=== PATIENT | male | born 1955 | race African-American/Black ===

== ENCOUNTER 2017-03-18 06:29 | Emergency (ER) | payer OTHER ==
[~2017-03-18] VITALS: Ht 177.8 cm; Wt 61.0 kg
[2017-03-18] MEDS ORDERED: SODIUM CHLORIDE 0.9% 1,000 ML IV ONE (07:29)
[2017-03-18] MEDS ORDERED: ONDANSETRON HCL 4MG/2ML VIAL IV STA (07:29)
[2017-03-18] MEDS ORDERED: MORPHINE SULFATE 4 MG/ML CPJ (NOT FOR IM USE) IV STA (07:29)
[2017-03-18 07:49] LABS: BASOPHILS % 0.8 % (0.0-2.0); EOSINOPHILS % 0.4 % (0.0-5.0); HEMATOCRIT. 40.3 % (42.0-52.0); HEMOGLOBIN. 13.7 g/dL (14.0-18.0); LYMPHOCYTES % 24.6 % (20.0-50.0); MEAN CORPUSCULAR HEMOGLOBIN 28.9 pg (28.0-32.0); MEAN PLATELET VOLUME 7.5 fl (7.4-10.4); MONOCYTES % 12.2 % (2.0-8.0); PLATELET 242 x1000/uL (130-400); RED BLOOD CELL COUNT 4.74 mill/uL (4.7-6.1); RED CELL DISTRIBUTION WIDTH 13.3 % (11.6-14.6)
[2017-03-18 08:06] LABS: CARBON DIOXIDE 26 mEq/L (21-32); CHLORIDE 108 mEq/L (98-107)
[2017-03-18] MEDS ORDERED: CEFTRIAXONE SODIUM 250 MG/VIAL IM ONE (09:00)
[2017-03-18] MEDS ORDERED: AZITHROMYCIN 500 MG TABLET PO ONE (09:00)
[2017-03-18 09:01] LABS: CLARITY URINE CLEAR (CLEAR); COLOR URINE YELLOW (YELLOW); GLUCOSE URINE NEGATIVE (NEGATIVE); KETONES URINE NEGATIVE (NEGATIVE); LEUKOCYTE ESTERASE URINE 2+ (NEGATIVE); NITRITE URINE POSITIVE (NEGATIVE); OCCULT BLOOD URINE TRACE (NEGATIVE); PROTEIN URINE NEGATIVE (NEGATIVE); SPECIFIC GRAVITY URINE 1.017 (1.005-1.030); UROBILINOGEN URINE 0.2 E.U./dL (0.2-1.0)
[2017-03-18] MEDS ORDERED: METRONIDAZOLE 500MG TABLET PO ONE (10:30)
[2017-03-18] MEDS ORDERED: DOXYCYCLINE HYCLATE 100 MG/VIAL IV ONE (10:30)
[2017-03-18] MEDS ORDERED: DOXYCYCLINE 100MG in DEXTROSE 5% WATER 100ML IV SCH (10:45)
[2017-03-18 10:58] VITALS: BP 143/86
[2017-03-20 08:18] LABS: CHLAMYDIA TRACHOMATIS NAA Negative (Negative); NEISSERIA GONORRHOEAE NAA Negative (Negative)
== END 2017-03-18 11:53 | disposition home or self-care (01) ==
LOC: ER 06:29
DX: N45.1 Epididymitis (principal); N43.3 Hydrocele, unspecified; N39.0 Urinary tract infection, site not specified; A59.9 Trichomoniasis, unspecified; I86.1 Scrotal varices; I10 Essential (primary) hypertension; M54.30 Sciatica, unspecified side; F12.10 Cannabis abuse, uncomplicated
CPT/HCPCS: 36415; 76870; 80053; 81001; 85025; 87491; 87591; 93976; 96361; 96365; 96372; 96375; 99285; J0696; J2270; J2405; J3490; J7030; Z7610; J7060

== ENCOUNTER 2019-01-31 07:05 | Emergency (ER) | payer OTHER ==
[~2019-01-31] VITALS: Ht 177.8 cm; Wt 105.1 kg
[~2019-01-31 07:05] MED LIST: DOXA4TAB3 PO
[2019-01-31 10:00] VITALS: BP 123/76
== END 2019-01-31 10:30 | disposition home or self-care (01) ==
LOC: ER 07:05
DX: M79.601 Pain in right arm (principal); F12.10 Cannabis abuse, uncomplicated; I10 Essential (primary) hypertension; H40.9 Unspecified glaucoma
CPT/HCPCS: 93971; 99284; Z7610

== ENCOUNTER 2019-08-02 08:05 | Emergency (ER) | payer OTHER ==
[~2019-08-02] VITALS: Ht 177.8 cm; Wt 99.0 kg
[2019-08-02] MEDS ORDERED: DEXAMETHASONE 10 MG/ML VIAL IM ONE (09:15)
[2019-08-02] MEDS ORDERED: KETOROLAC 60MG/2ML VIAL IM ONE (09:15)
[2019-08-02] MEDS ORDERED: BACITRACIN ZINC OINT UDPKT TOP ONE (09:30)
[2019-08-02 10:52] VITALS: BP 138/70
== END 2019-08-02 10:40 | disposition home or self-care (01) ==
LOC: ER 08:05
DX: M54.41 Lumbago with sciatica, right side (principal); S81.851A Open bite, right lower leg, initial encounter; W54.0XXA Bitten by dog, initial encounter; Y93.89 Activity, other specified; Y92.89 Other specified places as the place of occurrence of the external cause; Z86.718 Personal history of other venous thrombosis and embolism
CPT/HCPCS: 96372; 99283; J1100; J1885

== ENCOUNTER 2020-11-29 09:02 | Emergency (ER) | payer MEDICAID, OTHER ==
[~2020-11-29] VITALS: Ht 177.8 cm; Wt 105.0 kg
[2020-11-29] MEDS ORDERED: ACETAMINOPHEN 325MG TABLET PO ONE (09:45)
[2020-11-29] MEDS ORDERED: ACET-2708 MT (10:21)
[2020-11-29 10:33] VITALS: BP 148/71
== END 2020-11-29 10:34 | disposition home or self-care (01) ==
LOC: ER 09:02
DX: S90.01XA Contusion of right ankle, initial encounter (principal); W22.8XXA Striking against or struck by other objects, initial encounter; Y93.89 Activity, other specified; Y92.89 Other specified places as the place of occurrence of the external cause; G89.29 Other chronic pain; M54.5 Low back pain; M79.605 Pain in left leg; R03.0 Elevated blood-pressure reading, without diagnosis of hypertension; F12.90 Cannabis use, unspecified, uncomplicated; Z86.718 Personal history of other venous thrombosis and embolism
CPT/HCPCS: 73610; 99283

== ENCOUNTER 2021-10-03 08:08 | Emergency (ER) | payer MEDICAID, OTHER ==
[~2021-10-03] VITALS: Ht 175.3 cm; Wt 104.0 kg
[~2021-10-03 08:08] MED LIST changes: +ACET-2708 MT
[2021-10-03] MEDS ORDERED: IBUPROFEN 400MG TABLET PO ONE (09:00)
[2021-10-03 09:06] VITALS: BP 139/91
== END 2021-10-03 12:39 | disposition home or self-care (01) ==
LOC: ER 08:08
DX: M79.672 Pain in left foot (principal); M25.562 Pain in left knee; M25.561 Pain in right knee; I10 Essential (primary) hypertension; G89.29 Other chronic pain; M54.59 Other low back pain; Z86.718 Personal history of other venous thrombosis and embolism
CPT/HCPCS: 73564; 73630; 99284

== ENCOUNTER 2022-05-06 09:31 | Inpatient (IN) | payer OTHER ==
[~2022-05-06] VITALS: Ht 177.8 cm; Wt 109.8 kg
[2022-05-06] MEDS ORDERED: MAGNESIUM/ALUMINUM HYDROXIDE/SIMETHICONE 30ML UDC PO STA (10:41)
[2022-05-06] MEDS ORDERED: FAMOTIDINE 20MG TABLET PO ONE (10:45)
[2022-05-06 11:24] LABS: BASOPHILS % 0.5 % (0.0-2.0); EOSINOPHILS % 2.1 % (0.0-5.0); HEMATOCRIT. 40.1 % (42.0-52.0); HEMOGLOBIN. 13.4 g/dL (14.0-18.0); MEAN CORPUSCULAR HEMOGLOBIN 29.9 pg (28.0-32.0); MEAN CORPUSCULAR VOLUME 89.2 fL (80.0-94.0); MEAN PLATELET VOLUME 7.9 fl (7.4-10.4); MONOCYTES % 9.7 % (2.0-8.0); NEUTROPHILS % 60.7 % (40.0-76.0); PLATELET 237 x1000/uL (130-400); RED BLOOD CELL COUNT 4.49 mill/uL (4.7-6.1)
[2022-05-06 11:34] LABS: PARTIAL THROMBOPLASTIN TIME 28.1 sec (23.4-31.0); PROTHROMBIN TIME 10.7 sec (9.6-11.0)
[2022-05-06 11:42] LABS: CHLORIDE 107 mEq/L (98-107)
[2022-05-06] MEDS ORDERED: ACETAMINOPHEN 325MG TABLET PO ONE (12:00)
[2022-05-06] MEDS ORDERED: SODIUM CHLORIDE 0.9% 1,000 ML IV ONE (13:45)
[2022-05-06] MEDS ORDERED: IOHEXOL-350 100 ML BOTTLE ONE (18:09)
[2022-05-06] MEDS ORDERED: HEPARIN 25,000 UNITS PREMIX 250 ML IV ONE (18:15)
[2022-05-06] MEDS ORDERED: HEPARIN 5000 UNITS/ML VIAL IV ONE (18:15)
[2022-05-06] MEDS ORDERED: ENOXAPARIN 100MG/ML SYR SUBCUT ONE (18:30)
[2022-05-06] MEDS ORDERED: ACETAMINOPHEN 325MG TABLET PO NR (18:30)
[2022-05-06] MEDS: ENOXAPARIN 100MG/ML SYR SUBCUT SCH (18:56)
[2022-05-07] VITALS (7 sets, daily range): BP systolic 106–138; BP diastolic 60–85
[2022-05-07] MEDS: ENOXAPARIN 100MG/ML SYR SUBCUT SCH ×2 (06:22→19:38)
[2022-05-07] MEDS ORDERED: IPRATROPIUM/ALBUTEROL 0.5-3(2.5)MG/3ML NEB HHN PRN (10:45)
[2022-05-07] MEDS ORDERED: ACETAMINOPHEN 325MG TABLET PO PRN (10:45)
[2022-05-07] MEDS ORDERED: CLONIDINE 0.1MG TABLET PO PRN (10:45)
[2022-05-07] MEDS ORDERED: IOHEXOL-350 100 ML BOTTLE ONE (12:06)
[2022-05-07 18:41] LABS: CREATINE KINASE MB FRACTION 2.8 ng/mL (0.5-3.6); HDL CHOLESTEROL 40 mg/dL (40-59); LDL CHOLESTEROL 78 mg/dL (5-100)
[2022-05-07] MEDS ORDERED: NALOXONE HCL 0.4MG/ML VIAL IV PRN (19:00)
[2022-05-08 00:50] LABS: CREATINE KINASE MB FRACTION 2.3 ng/mL (0.5-3.6)
[2022-05-08 06:00] VITALS: BP 106/73
[2022-05-08] MEDS ORDERED: ENOXAPARIN 100MG/ML SYR SUBCUT SCH (06:00)
[2022-05-08 08:00] VITALS: BP 109/80
[2022-05-08] MEDS ORDERED: HEPARIN 1000 UNITS/ML 10ML ONE (09:06)
[2022-05-08] MEDS ORDERED: LIDOCAINE HCL/PF 1% 10 MG/ML 5ML VIAL ONE (09:06)
[2022-05-08] MEDS ORDERED: IODIXANOL 320MG/ML 100 ML BOTTLE IV ONE (09:06)
[2022-05-08] MEDS ORDERED: PROPOFOL 200MG/20ML VIAL IV ONE (10:24)
[2022-05-08] MEDS ORDERED: MIDAZOLAM HCL 2 MG/2 ML VIAL ONE (10:25)
[2022-05-08] MEDS ORDERED: FENTANYL CITRATE/PF 50MCG/ML 2ML VIAL ONE ×2 (10:58→12:11)
[2022-05-08] MEDS ORDERED: PHENYLEPHRINE HCL 10 MG/ML 1ML (IV VIAL) IV ONE (11:16)
[2022-05-08] MEDS ORDERED: SUCCINYLCHOLINE CHLORIDE 200MG/10ML IV ONE (12:06)
[2022-05-08] MEDS ORDERED: ONDANSETRON HCL 4MG/2ML INJ ONE (12:06)
[2022-05-08] MEDS ORDERED: CEFAZOLIN SODIUM 1000MG/VIAL ONE (12:06)
[2022-05-08] MEDS ORDERED: LIDOCAINE HCL 1% 10 MG/ML 10ML VIAL ONE (12:06)
[2022-05-08] MEDS ORDERED: DEXAMETHASONE 4MG/ML 1ML VIAL ONE (12:06)
[2022-05-08] MEDS ORDERED: ACETAMINOPHEN 325MG TABLET PO PRN (13:30)
[2022-05-08] MEDS: SODIUM CHLORIDE 0.45% 500 ML IV SCH ×3 (13:30→22:52)
[2022-05-08] MEDS ORDERED: ATROPINE SULFATE 1MG/10ML SYR IV PRN (13:50)
[2022-05-08] MEDS ORDERED: APIXABAN 5 MG TABLET PO SCH (17:00)
[2022-05-08 20:00] VITALS: BP 126/84
[2022-05-08 21:00] VITALS: BP 131/68
[2022-05-08 22:00] VITALS: BP 148/69
[2022-05-08] MEDS: HYDROCODONE/ACETAMINOPHEN 5/325MG TABLET PO PRN (22:49)
[2022-05-09] VITALS (14 sets, daily range): BP systolic 97–146; BP diastolic 36–85
[2022-05-09] MEDS: HYDROCODONE/ACETAMINOPHEN 5/325MG TABLET PO PRN ×2 (04:44→21:02)
[2022-05-09] MEDS: ENOXAPARIN 100MG/ML SYR SUBCUT SCH ×3 (04:47→18:50)
[2022-05-09] MEDS: SODIUM CHLORIDE 0.45% 500 ML IV SCH ×2 (04:47→08:47)
[2022-05-09 06:18] LABS: BASOPHILS % 0.1 % (0.0-2.0); EOSINOPHILS % 0.1 % (0.0-5.0); HEMATOCRIT. 33.4 % (42.0-52.0); HEMOGLOBIN. 11.3 g/dL (14.0-18.0); LYMPHOCYTES % 11.1 % (20.0-50.0); MEAN CORPUSCULAR VOLUME 88.5 fL (80.0-94.0); MEAN PLATELET VOLUME 8.5 fl (7.4-10.4); MONOCYTES % 9.8 % (2.0-8.0); NEUTROPHILS % 78.9 % (40.0-76.0); PLATELET 242 x1000/uL (130-400); RED BLOOD CELL COUNT 3.77 mill/uL (4.7-6.1); RED CELL DISTRIBUTION WIDTH 12.9 % (11.6-14.6)
[2022-05-09 06:33] LABS: CHLORIDE 110 mEq/L (98-107)
[2022-05-10] VITALS (8 sets, daily range): BP systolic 113–131; BP diastolic 61–85
[2022-05-10] MEDS: ENOXAPARIN 100MG/ML SYR SUBCUT SCH (07:07)
== END 2022-05-10 13:45 | disposition home health service (06) | DRG 169 ==
LOC: ER 11:57 → MICUSO 05-07 06:50 → EDBEDREQ 05-07 06:57 → EDBEDREQDT 05-07 06:57 → EDBEDREQTM 05-07 06:57 → 8WST 05-07 08:50 → 5EST 05-08 18:08
PROVIDERS: ADMIT Internal Medicine; ATTEND Internal Medicine
PROC: 06HD3DZ Insertion of Intraluminal Device into Left Common Iliac Vein, Percutaneous Approach (ICD-10-PCS; principal; 2022-05-08)
PROC: 04CD3ZZ Extirpation of Matter from Left Common Iliac Artery, Percutaneous Approach (ICD-10-PCS; 2022-05-08)
PROC: B54CZZ3 Ultrasonography of Left Lower Extremity Veins, Intravascular (ICD-10-PCS; 2022-05-08)
PROC: B51CYZZ Fluoroscopy of Left Lower Extremity Veins using Other Contrast (ICD-10-PCS; 2022-05-08)
DX: I82.422 Acute embolism and thrombosis of left iliac vein (principal); I87.1 Compression of vein; F17.210 Nicotine dependence, cigarettes, uncomplicated; I10 Essential (primary) hypertension; Z71.6 Tobacco abuse counseling; Z86.718 Personal history of other venous thrombosis and embolism; Z79.01 Long term (current) use of anticoagulants; Z86.711 Personal history of pulmonary embolism; Z20.822 Contact with and (suspected) exposure to COVID-19
CPT/HCPCS: 36415; 36569; 36904; 36907; 37187; 37238; 37246; 37248; 74177; 75635; 75736; 75820; 75825; 76937; 80048; 80053; 80061; 82553; 83036; 84153; 84484; 85025; 85347; 87426; 93306; 93971; 99285; C1725; C1753; C1769; C1887; C1893; C9803; J0330; J0690; J1100; J1644; J1650; J2250; J2370; J2405; J2704; J3010; J3490; J7030; L1830; Q9967; C1876; G0103

== ENCOUNTER 2022-05-25 18:24 | Emergency (ER) | payer OTHER ==
[~2022-05-25] VITALS: Ht 177.8 cm; Wt 109.0 kg
[2022-05-25 18:30] VITALS: BP 120/68
[2022-05-25 19:47] LABS: CHLORIDE 104 mEq/L (98-107)
== END 2022-05-25 23:01 | disposition left against medical advice (07) ==
LOC: ER 18:41
DX: M79.605 Pain in left leg (principal); R06.02 Shortness of breath; Z86.718 Personal history of other venous thrombosis and embolism; Z98.890 Other specified postprocedural states; Z79.01 Long term (current) use of anticoagulants
CPT/HCPCS: 36415; 80048; 99283

== ENCOUNTER 2024-03-06 08:44 | Emergency (ER) | payer OTHER ==
[~2024-03-06] VITALS: Ht 182.9 cm; Wt 97.0 kg
[2024-03-06 08:45] VITALS: TEMP 98.2; O2SAT 98
[2024-03-06 10:12] LABS: BASOPHILS % 0.6 % (0.0-2.0); EOSINOPHILS % 1.1 % (0.0-5.0); HEMATOCRIT. 44.6 % (42.0-52.0); HEMOGLOBIN. 14.6 g/dL (14.0-18.0); LYMPHOCYTES % 24.3 % (20.0-50.0); MEAN CORPUSCULAR HGB CONC 32.7 g/dL (31.0-37.0); MEAN CORPUSCULAR VOLUME 91.6 fL (80.0-94.0); MEAN PLATELET VOLUME 8.6 fl (7.4-10.4); MONOCYTES % 11.7 % (2.0-8.0); NEUTROPHILS % 62.3 % (40.0-76.0); PLATELET 235 x1000/uL (130-400); RED BLOOD CELL COUNT 4.87 mill/uL (4.7-6.1); RED CELL DISTRIBUTION WIDTH 14.1 % (11.6-14.6); WHITE BLOOD COUNT 6.6 x1000/uL (4.5-11.0)
[2024-03-06 10:28] LABS: CHLORIDE 109 mEq/L (98-107); POTASSIUM 3.9 mEq/L (3.5-5.1); SODIUM 142 mEq/L (136-145)
[2024-03-06 10:29] LABS: CARBON DIOXIDE 27 mEq/L (21-32)
[2024-03-06 10:30] LABS: CALCIUM 9.3 mg/dL (8.7-10.4)
[2024-03-06 10:34] LABS: CREATININE 1.1 mg/dL (0.6-1.3); GLUCOSE 123 mg/dL (70-105); UREA NITROGEN BLOOD 13 mg/dL (9-23)
[2024-03-06] MEDS ORDERED: BENZ200C52 MT (11:09)
[2024-03-06 11:34] VITALS: BP 132/82; PULSE 59; RESP 17
== END 2024-03-06 11:42 | disposition home or self-care (01) ==
LOC: ER 08:44
DX: R05.9 Cough, unspecified (principal); F12.10 Cannabis abuse, uncomplicated; I10 Essential (primary) hypertension; Z98.890 Other specified postprocedural states; Z95.5 Presence of coronary angioplasty implant and graft; Z86.718 Personal history of other venous thrombosis and embolism; Z79.899 Other long term (current) drug therapy
CPT/HCPCS: 36415; 71045; 80048; 82375; 85025; 99284

== ENCOUNTER 2024-05-28 06:22 | Emergency (ER) | payer BC, OTHER ==
[~2024-05-28] VITALS: Ht 177.8 cm; Wt 106.0 kg
[~2024-05-28 06:22] MED LIST changes: +BENZ200C52 MT
[2024-05-28 06:30] VITALS: O2SAT 98
[2024-05-28 07:07] LABS: BASOPHILS % 0.7 % (0.0-2.0); EOSINOPHILS % 1.1 % (0.0-5.0); HEMATOCRIT. 45.1 % (42.0-52.0); HEMOGLOBIN. 14.5 g/dL (14.0-18.0); LYMPHOCYTES % 35.2 % (20.0-50.0); MEAN CORPUSCULAR HEMOGLOBIN 29.7 pg (28.0-32.0); MEAN CORPUSCULAR HGB CONC 32.2 g/dL (31.0-37.0); MEAN CORPUSCULAR VOLUME 92.1 fL (80.0-94.0); MEAN PLATELET VOLUME 7.8 fl (7.4-10.4); MONOCYTES % 10.2 % (2.0-8.0); NEUTROPHILS % 52.8 % (40.0-76.0); PLATELET 222 x1000/uL (130-400); RED BLOOD CELL COUNT 4.89 mill/uL (4.7-6.1); RED CELL DISTRIBUTION WIDTH 14.6 % (11.6-14.6); WHITE BLOOD COUNT 5.1 x1000/uL (4.5-11.0)
[2024-05-28 07:19] LABS: CALCIUM 9.8 mg/dL (8.7-10.4); POTASSIUM 3.5 mEq/L (3.5-5.1)
[2024-05-28 07:40] LABS: CREATININE 1.5 mg/dL (0.6-1.3)
[2024-05-28 12:38] VITALS: BP 106/70; PULSE 66; RESP 18; TEMP 36.72516; O2SAT 100
== END 2024-05-28 12:40 | disposition home or self-care (01) ==
LOC: ER 06:22
DX: R25.2 Cramp and spasm (principal); F12.10 Cannabis abuse, uncomplicated; I10 Essential (primary) hypertension; Z98.890 Other specified postprocedural states
CPT/HCPCS: 36415; 80048; 85025; 93970; 99284

== ENCOUNTER 2024-06-14 21:04 | Emergency (ER) | payer BC ==
[~2024-06-14] VITALS: Ht 177.8 cm; Wt 108.0 kg
[2024-06-14 21:13] VITALS: O2SAT 97
[2024-06-14] MEDS ORDERED: CEPH500C2 MT (21:28)
[2024-06-14 22:14] VITALS: BP 113/70; PULSE 66; RESP 15; TEMP 36.78072; O2SAT 98
== END 2024-06-14 22:22 | disposition home or self-care (01) ==
LOC: ER 21:04
DX: L02.212 Cutaneous abscess of back [any part, except buttock and flank] (principal); E11.9 Type 2 diabetes mellitus without complications; I10 Essential (primary) hypertension
CPT/HCPCS: 99283

== ENCOUNTER 2025-01-06 23:15 | Emergency (ER) | payer MEDICARE ==
[~2025-01-06] VITALS: Ht 177.8 cm; Wt 98.0 kg
[~2025-01-06 23:15] MED LIST changes: +AMLO2.5T45 MT; +APIX5TAB MT; +DOCU-422 MT; +HYDR-4005 MT; +IBUP-2029 MT; +LIDO700A30 TP; +LOSA1TAB37 MT; +METH-371 MT
[2025-01-06 23:45] VITALS: O2SAT 97
[2025-01-07 00:37] VITALS: BP 121/76; PULSE 87; RESP 18; TEMP 36.8; O2SAT 97
== END 2025-01-07 00:40 | disposition home or self-care (01) ==
LOC: ER 23:46
DX: Z76.89 Persons encountering health services in other specified circumstances (principal); I10 Essential (primary) hypertension; E11.9 Type 2 diabetes mellitus without complications; Z79.899 Other long term (current) drug therapy; Z86.718 Personal history of other venous thrombosis and embolism; Z98.890 Other specified postprocedural states
CPT/HCPCS: 99281